=== PATIENT | male | born 1960 | race Caucasian/White ===

== ENCOUNTER 2024-07-19 08:56 | Emergency (ER) | payer BC, SELFPAY ==
[2024-07-19 09:01] VITALS: BP 168/106
[2024-07-19 09:13] VITALS: BP 151/91
--- NOTE | 2024-07-19 09:23 | ED.GENMED ---
History of Present Illness
General
Chief Complaint: Chest Pain
Source: patient
Exam Limitations: none
Time Seen by Provider: 07/19/24 09:08
Nursing documentation reviewed up to this point in time: agreed with
History of Present Illness
History of Present Illness:
Patient is a 64-year-old male with past medical history of CAD CABG x 4 in 2019 high cholesterol hypertension on aspirin presents to the ER for evaluation. Patient reports he woke up at 1 AM felt his heart racing and noticed some mild discomfort to
his left armpit/chest area. He has had this intermittently throughout the night. He did go to the supermarket this morning and also noticed it then. He reports pain is mild now maybe a 2 out of 10. He does notice pain is worse in the left
lateral chest armpit area when he takes a deep breath. He does not feel short of breath. He denies any lower extremity swelling. He denies any associated nausea vomiting diaphoresis.
He is followed by Dr Burris .
Past History
Past History
ED Past Medical History: Arrthythmia, GERD, HTN and Hypercholesterolemia
ED Past Surgical History: Cardiac and Orthopedic
Social History
Tobacco: Non-smoker
Alcohol: Occasional
Personal:
Living: with family
Employment: Employed
Family History
Family History: CAD
Review of Systems
Review of Systems
Allergies reviewed?: Yes
All Other Systems: ROS reviewed and negative except as documented in HPI and ROS
Constitutional: Reports no symptoms
Respiratory: Denies trouble breathing
Cardiac: Reports chest pain
ABD/GI: Reports no symptoms
: Reports no symptoms
Musculoskeletal: Reports no symptoms
Skin: Reports no symptoms
Neurological: Reports no symptoms
Psychiatric: Reports no symptoms
Phy Exam
General Physical Exam
General Presentation: no apparent distress
General age: appears stated age
General Skin: warm and dry
General Habitus: normal
General Mental: alert
General Hydration: appears well hydrated
Cardiovascular Exam
Cardiovascular Exam: regular rate/rhythm, no murmur and normal peripheral pulses
Pulmonary Exam
Pulmonary Exam: lungs clear, no respiratory distress and other (non tender to chest wall, mild discomfort when taking a deep breath to left upper rib/arm pit region)
Neurological Exam
Neurological Exam: alert and oriented x3
Musculoskeletal Exam
Musculoskeletal Exam: full ROM
Skin Exam
Skin Exam: normal color and warm/dry
Psychiatric Exam
Psychiatric Exam: normal mood/affect
Scores
Heart Score for Chest Pain Patients
STEMI patient?: Not applicable
Course
Orders/Labs/Results
Orders:
Orders
07/19/24 09:03
EKG [Electrocardiogram (*1)] Urgent
Reason for Study: Chest Pain
EKG- Treatment ONCE
07/19/24 09:34
Cardiac Monitoring- Treatment ONCE
IV Insert/Care/Rem.- Treatment PRN
CR Chest - 2 Views Urgent
Comment:
Reason For Exam: cp
07/19/24 09:43
Complete Blood Count/With Diff Urgent
Comprehensive Metabolic Panel Urgent
DDimer [D-Dimer] Urgent
Troponin I Urgent
07/19/24 11:09
EKG- Treatment ONCE
07/19/24 12:40
EKG [Electrocardiogram (*1)] Urgent
Reason for Study: Chest Pain
07/19/24 12:49
Troponin I Urgent
Abnormal Lab Results
07/19/24
09:43
Monocytes % 10.7 H %
(1.7-9.3)
BUN 27 H mg/dl
(9-20)
07/19/24 09:43
07/19/24 09:43
Vital Signs
Initial and Last Documented VS:
Initial Vital Signs
Temp Pulse Resp BP Pulse Ox
98.8 F 70 17 168/106 98
07/19/24 09:01 07/19/24 09:01 07/19/24 09:01 07/19/24 09:01 07/19/24 09:01
Last Documented Vital Signs
Temp Pulse Resp BP Pulse Ox
98.8 F 59 15 114/78 95
07/19/24 09:01 07/19/24 13:00 07/19/24 13:00 07/19/24 13:00 07/19/24 13:00
MDM/Problems Addressed
Differential Diagnosis Includes:
Not limited to ACS, muscle pain less likely PE
MDM/Problems Addressed:
As documented patient is a 64-year-old male with history of bypass presents to the ER for evaluation of chest pain. Patient has had intermittent left-sided chest/arm pain since last night which has been intermittent not associate with shortness of
breath. Patient pain-free and has been monitored here with 2 negative cardiac troponins. Negative D-dimer. Patient was not short of breath however had mild pain with inspiration to this left chest area.
He is well-appearing in no acute distress patient is followed by Dr. Burris and has an appointment for an echo this Sunday and is scheduled for an appointment in the next [address] Burris
Stable for discharge home.
*Radiology
Radiology exam reviewed: radiology read reviewed
*Pulse Oximetry
Patient hypoxic: no
*EKG
Interpreted by ED Provider?: Yes
Interpretation: normal
Comparison EKG: no changes
Heart Rate: 62
Rate: normal
Rhythm: sinus
*Critical Care Note
Total Time (30-74mins, 75-104mins- exclusive of procedures): Not Applicable
ED Attending Note
-
Portions of this chart may have been created with voice recognition software.� Occasional wrong word or��sound alike� substitutions may have occurred due to the inherent limitations of voice recognition software.
Discharge Plan
Departure
Patient Disposition: Home (Routine Discharge)
Date of Disposition: 07/19/24
Time of Disposition: 13:37
Patient with high blood pressure during this ER visit?: Yes
Condition: Fair
Covid-19: Not Applicable
Discharge Problem:
Chest pain
Instructions: Chest Pain DCA Follow Up
Prescriptions:
No Action
atorvastatin 80 MG tablet
80 mg PO QPM Qty: 30 1RF
acetaminophen 325 MG tablet
650 mg PO Q4HPRN PRN (Reason: mild pain,headache,temp >101F ) 0RF
metoprolol succinate 50 MG tablet extended release 24 hr
50 mg PO DAILY Qty: 30 1RF
clopidogrel 75 MG tablet
75 mg PO DAILY Qty: 30 1RF
tramadol 50 MG tablet
50 mg PO Q6HPRN PRN (Reason: moderate-severe pain) Qty: 28 0RF
aspirin 81 MG tablet,chewable
81 mg PO DAILY 0RF
lisinopril 5 MG tablet
5 mg PO DAILY Qty: 30 1RF
furosemide [Lasix] 20 MG tablet
20 mg PO DAILY Qty: 3 0RF
potassium chloride 10 MEQ tablet,ER particles/crystals
10 meq PO DAILY Qty: 3 0RF
Referrals:
Mehdi Burris MD [Active] -
Lamberto Nunez MD [Family Provider] -
Activity Restrictions/Additional Instructions:
As discussed follow-up with cardiology as scheduled. Follow-up for your echo as scheduled on Sunday. Return if any worsening of symptoms.
Interventions
Interventions:
*Risk Screen - Suicide Last Done: 07/19/24 09:40
*General Assessment Last Done: 07/19/24 09:04
*Neglect/Abuse Screening Last Done: 07/19/24 09:40
ED- Fall Risk Assessment Last Done: 07/19/24 10:08
*ED COVID-19 Vaccine History Last Done: 07/19/24 09:04
*Nursing Disposition Last Done: 07/19/24 13:43
ED- Cardiac Assessment Last Done: 07/19/24 09:40
Discharge Date and Time
Discharge Date/Time: 07/19/24 13:44
Print Language: UKRAINIAN
[2024-07-19 09:40] VITALS: BMI 28.7
[2024-07-19 09:55] LABS: % Basophils 0.6 % (0-2); % Eosinophils 1.5 % (0-6); % Immature Granulocytes 0.2 % (0-0.5); % Lymphocytes 27.5 % (20.5-51.1); % Monocytes 10.7 % (1.7-9.3); % Neutrophils 59.5 % (42.2-75.2); Absolute Eosinophils 0.1 10^3/uL (0-0.7); Absolute Lymphocytes 1.5 10^3/uL (1.2-3.4); Absolute Monocytes 0.6 10^3/uL (0.1-0.6); Absolute Neutrophils 3.2 10^3/uL (1.4-6.5); Hematocrit 45.6 % (39.0-52.0); Hemoglobin 16.1 g/dL (13.0-18.0); Mean Corp Hgb Conc. 35.3 g/dL (33.0-37.0); Mean Corpuscular Hgb 29.9 pg (27.0-31.0); Mean Corpuscular Volume 84.8 fL (80.0-94.0); Mean Platelet Volume 8.9 fL (7.4-10.4); Nucleated Red Blood Cells % 0 % (-); Platelet Count 181 10^3/uL (130-400); Red Blood Cell Count 5.38 10^6/uL (4.70-6.10); Red Cell Dist. Width 12.5 % (11.5-14.5); White Blood Cell Count 5.3 10^3/uL (4.8-10.8)
[2024-07-19 10:00] VITALS: BP 143/80
[2024-07-19 10:11] LABS: ALT (SGPT) 41 U/L (0-50); AST (SGOT) 40 U/L (17-59); Albumin 4.5 g/dl (3.5-5.0); Alkaline Phosphatase 53 U/L (38-126); Blood Urea Nitrogen 27 mg/dl (9-20); Calcium 10.1 mg/dl (8.4-10.2); Carbon Dioxide 27 mmol/L (22-30); Chloride 102 mmol/L (98-107); Estimated Creatinine Clearance 84 ml/min; Glucose 96 mg/dl (70-99); Potassium 4.4 mmol/L (3.5-5.1); Sodium 137 mmol/L (135-145); Total Bilirubin 0.8 mg/dl (0.2-1.3); Total Protein 7.1 g/dl (6.3-8.2); eGFR > 60.00
[2024-07-19 10:22] LABS: D-Dimer < 0.27 ug/mlFEU (0.00-0.50); Troponin I < 0.012 ng/ml
[2024-07-19 11:57] VITALS: BP 121/78
[2024-07-19 12:00] VITALS: BP 123/77
[2024-07-19 13:00] VITALS: BP 114/78
[2024-07-19 13:20] LABS: Troponin I < 0.012 ng/ml
== END 2024-07-19 13:44 | disposition home or self-care (01) ==
LOC: EMR 08:56
PROVIDERS: Nurse Practitioner; EMERGENCY PHYSICIAN Emergency Medicine; FAMILY PHYSICIAN Family Medicine
DX: R07.89 Other chest pain (principal); E78.00 Pure hypercholesterolemia, unspecified; I10 Essential (primary) hypertension; K21.9 Gastro-esophageal reflux disease without esophagitis; I25.10 Atherosclerotic heart disease of native coronary artery without angina pectoris; Z95.1 Presence of aortocoronary bypass graft
CPT/HCPCS: 99285; 71046; 80053; 84484; 85025; 85379; 93005

== ENCOUNTER → 2024-07-22 07:07 | Outpatient (REF) | payer BC, SELFPAY | LOC: RCS 07:07 | PROVIDERS: ATTENDING PHYSICIAN Internal Medicine Interventional Cardiology; FAMILY PHYSICIAN Family Medicine | DX: I25.2 Old myocardial infarction (principal); I10 Essential (primary) hypertension; I25.10 Atherosclerotic heart disease of native coronary artery without angina pectoris | CPT/HCPCS: 93306 ==

== ENCOUNTER 2024-08-15 06:25 | Day surgery (SDC) | payer BC, SELFPAY ==
[2024-08-15] VITALS (7 sets, daily range): BP systolic 124–162; BP diastolic 72–92; BMI 27.9
--- NOTE | 2024-08-15 10:38 | HP.FOC2 ---
Focused History & Physical
Chief Complaint
HPI:
Chief Complaint: Left inguinal hernia
HPI / Indication for Planned Procedure: Patient is a 64-year-old male recently seen in outpatient surgical evaluation secondary to a history of a left inguinal hernia that he has been following expectantly. The hernia is slightly increased in size.
He has an awareness of the hernia being present and visible swelling. Minimal discomfort. No pain. No symptoms suggestive of intermittent incarceration or obstruction.
Relevant Past Medical History: Other (CAD with previous VT status post CABG, hypertension, hyperlipidemia, WPW status post ablation, GERD, degenerative disc disease lumbar, history of melanoma)
Relevant Social History: Negative
Relevant Family History: Negative
Relevant Past Surgical History: Positive for (Vasectomy, WPW ablation, CABG, cataracts)
Review of Systems
Review of Pertinent Systems: All Systems Negative
Medication
See Medication form for detailed medications: Yes
Medication List (including Herbals & OTC):
acetaminophen 325 mg tablet 650 mg (2 x 325 mg) PO Q4HPRN PRN mild pain,headache,temp >101F 06/10/20
aspirin 81 mg chewable tablet 81 mg PO DAILY 06/10/20
ezetimibe 10 mg tablet 10 mg PO DAILY 08/07/24
lisinopril 20 mg tablet 20 mg PO DAILY 08/07/24
metoprolol succinate 25 mg tablet,extended release 24 hr 25 mg PO DAILY 08/07/24
multivitamin 1 tab PO DAILY 08/07/24
rosuvastatin 20 mg tablet 20 mg PO DAILY 08/07/24
Medications Reviewed: Yes
Allergies and Reactions
Patient has Allergies: No
Noted Allergies and Reactions:
Allergy/AdvReac Type Severity Reaction Status Date / Time
codeine [Codeine] Allergy NAUSEA Verified 08/07/24 14:59
Pertinent Physical Exam
All Other Systems: Negative
Head/Neck: Normal
Lungs: Normal
Heart: Normal
Abdomen: Other (Left inguinal hernia, reducible)
Extremities: Normal
Neurological: Normal
Diagnosis / Assessment
64-year-old male presenting for scheduled operative correction symptomatic left inguinal hernia
Plan / Procedure
Robotic assisted laparoscopic repair left inguinal hernia with mesh
Anesthesia/Sedation to be done by Anesthesia Provider: Yes
--- NOTE | 2024-08-15 10:42 | W.SUR.PREOP ---
Pre-Operative Surgical Note
-
I have examined this patient prior to the performance of the scheduled procedure.
The patient's condition is unchanged from the time of the current History and
Physical and the patient is able to undergo the scheduled procedure.
[2024-08-15] MEDS: TYLENOL 1000 MG PO (10:55)
[2024-08-15] MEDS: NORMOSOL-R/PLASMALYTE-A 1000 IV (10:55)
--- NOTE | 2024-08-15 14:42 | W.IMMPOSTOP ---
Surgical Immed Post Op Note
-
Primary Surgeon: Jerome Do MD
Assisting Surgeon: Beth Craig PA-c
Pre-op Diagnosis: LIH
Post-op Diagnosis: LIH - direct
Procedure Performed: RAL ALEXANDRO repair LIH with mesh; 3D Max Ex Large Mid Wt
Anesthesia Type: GETA + 0.25% Marcaine
Specimen / Cultures: None
Estimated Blood Loss: 8mL
Complications: None immediate
Operative Findings: Large left direct inguinal hernia. Indirect location normal. Small lipoma reduced and excised to facilitate mesh positioning. Direct space pseudosac plicated with 2-0 PDS strattafix. 3D Max ExLg Mid weight mesh secured to
coopers with 2-0 Vicryl x 2. No additional incidental findings.
The assistance of Beth Craig PA-C was required due to the complexity of the procedure. During the procedure Beth Craig PA-C assisted with port placement, robotic instrumentation and suture material exchanges, and closure of the surgical incision
sites. I was present for the entirety of the operative procedure.
--- NOTE | 2024-08-15 15:08 | OR.RPT ---
Operative Report
Operative Report
Date of operative procedure: 08/15/2024
Primary Surgeon: Jerome Do MD
Assisting Surgeon: Beth Craig PA-C
Pre-op Diagnosis: Left inguinal hernia
Post-op Diagnosis: Left inguinal hernia, direct
Procedure Performed: Robotic assisted laparoscopic ALEXANDRO repair left inguinal hernia; 3D max extra-large mid weight
Anesthesia Type: GETA +0.25% Marcaine
Specimen / Cultures: None/none
Estimated Blood Loss: 8 mL
Complications: None immediate
Indications for operative procedure: Patient is a 64-year-old male recently seen in outpatient surgical evaluation secondary to a history of a left inguinal hernia that he has been following expectantly. The hernia has increased in size over the
years. He has an awareness of the hernia being present and visible swelling. Minimal discomfort. No pain. No symptoms suggestive of intermittent incarceration or obstruction. Reviewed with the patient treatment options and he wished to pursue
operative correction. We discussed various operative approaches to repair and have elected to proceed with a robotic assisted laparoscopic inguinal herniorrhaphy with mesh.
Brief summary of operative Findings: Large left direct inguinal hernia. Left indirect location normal. Small cord lipoma reduced and excised to facilitate mesh positioning. Direct space pseudosac plicated with 2-0 PDS strattafix. 3D Max ExLg Mid
weight mesh secured to coopers with 2-0 Vicryl x 2. No additional incidental findings.
Operation detail: The patient was identified in the preoperative holding area. I confirmed the surgical site and side with the patient preoperatively which was then marked and initialed by myself. He was interviewed by the anesthesia and nursing
staff then brought back to the operating room. The patient was placed on the operating table in supine position. The bilateral upper extremities were carefully padded and tucked at the side utilizing the arm guard positioning system. Pneumatic
compression boots were on the bilateral lower extremities. Following induction of general endotracheal anesthesia the patient was administered Ancef 2 g IV for prophylactic antibiotic coverage. The patient's anterior abdominal wall was now widely
and sterilely prepped with ChloraPrep and then draped in the usual manner. The surgical timeout was completed and the procedure was confirmed.
I initially proceeded with Veress needle insufflation in the left subcostal midclavicular line location. Once insufflated to 12 mmHg pressure then a left midclavicular line 8 mm trocar was then placed. The robotic scope was inserted, there was no
evidence of iatrogenic injury from access. The Veress needle was withdrawn. An epigastric 8 mm trocar was placed just to the left off of the midline. A right midclavicular line 8 mm trocar was placed. The patient was then transition into
Trendelenburg to expose the inguinal/pelvic space and the robot was docked.
At the surgeon console inspection of the pelvis confirmed the presence of a sizable left direct inguinal hernia. There were no additional incidental intra-abdominal findings.
I initially began with creation of a peritoneal flap at the level of the left ASIS to the left medial umbilical ligament. The preperitoneal plane was now established along the length of the flap and developed inferiorly down to the inguinal space.
The medial dissection proceeded until the notch of the pubic symphysis was exposed at the midline and slightly onto the right side. Nathan's ligament and the left inguinal region was now cleared through the direct and femoral space reducing all of
the herniated preperitoneal fat and peritoneum out of the direct inguinal hernia defect. Next the underside of Nathan's ligament was exposed as well. The peritoneal flap was now mobilized laterally down to the internal ring. The peritoneum was
now dissected free from the left spermatic cord structures from a anterior lateral to anterior medial approach. I carefully continued to mobilize the peritoneum from its posterior attachments with identification of the vas and the spermatic cord
vessels. The peritoneal dissection dissection continued back proximally past the turn in the left vas deferens and then overlying the left iliac space to meet up with the medial dissection. The posterior dissection continued until there was wide
separation between the vas and the spermatic cord vessels. The dissection continued posterior laterally for full exposure of the myopectineal orifice. There was a small lipoma associated with the left spermatic cord structures which was reduced
and excised to facilitate mesh placement.
With the myopectineal orifice now completely exposed hemostasis was confirmed. The pseudosac of the left direct space was plicated with a running continuous 2-0 PDS STRATAFIX spiral suture. A 3D max extra-large mid weight mesh was utilized for
repair. The mesh was positioned parallel to the ileopubic tract. It was secured at 2 separate locations inferior medially on Nathan's ligament with 2 simple interrupted 2-0 Vicryl sutures. The patient was now begun to be taken out of
Trendelenburg to confirm that the posterior aspect of the mesh was lying flat and that there was no shelling or undermining of the mesh by the peritoneal edge. The peritoneal flap was now closed with a 2-0 Monocryl STRATAFIX spiral suture with a
running [place] type stitch.
A flexible suction catheter was placed through an 8 mm trocar and introduced into the peritoneal flap to evacuate the air out of the preperitoneal space. This again confirmed good positioning of the inguinal hernia mesh. There was no shelling or
folding of the mesh and no undermining and mesh by the peritoneal edge. The peritoneal covering of the mesh was completely intact.
At this point the robot was undocked. All sponge instrument and needle counts were confirmed to be correct x 2. The CO2 insufflation was now carefully evacuated out of the abdominal cavity. The trocar sites were removed as well as the flexible
suction catheter. Skin was closed with 4-0 Monocryl. Sterile surgical glue dressings were applied. The patient tolerated the procedure well and was transferred to the recovery unit for routine postoperative monitoring.
The assistance of Beth Craig PA-C was required due to complexity of surgery. During the procedure Beth Craig PA-C assisted with port placement, robotic instrumentation and suture material exchanges as well as closure of the surgical sites. I
was present for the entirety of the operative procedure.
== END 2024-08-15 16:38 | disposition home or self-care (01) ==
LOC: SDS 06:25
PROVIDERS: ATTENDING PHYSICIAN Surgery
DX: K40.90 Unilateral inguinal hernia, without obstruction or gangrene, not specified as recurrent (principal)
CPT/HCPCS: 49650; C1781

== ENCOUNTER → 2024-11-14 11:15 | Outpatient (REF) | payer BC, SELFPAY | LOC: RCS 11:15 | PROVIDERS: ATTENDING PHYSICIAN Internal Medicine Interventional Cardiology; FAMILY PHYSICIAN Family Medicine | DX: R07.89 Other chest pain (principal); I25.2 Old myocardial infarction | CPT/HCPCS: 78452; 93017; A9500 ==